=== PATIENT | female | born 1970 | race Caucasian/White ===

== ENCOUNTER 2020-10-10 14:49 | Inpatient (IN) ==
[2020-10-10 16:07] LABS: Basophils % 0.1 % (0.0-0.8); Hemoglobin 13.9 GM/DL (12.0-16.0); Immature Granulocytes % 0.5 %; Immature Granulocytes Absolute 0.07 #; Lymphocytes # 1.3 10*3/uL (1.4-4.0); Lymphocytes % 9.3 % (21.3-54.2); Mean Corpuscular HGB Conc 33.1 GM/DL (32-36); Mean Corpuscular Volume 91.3 FL (87-102); Mean Platelet Volume 9.8 FL (9.6-12.0); Monocytes % 3.3 % (1.7-12.7); Neutrophils % 86.8 % (38.7-73.9); Platelet Count 273 T/CUMM (130-400); Red Cell Distribution Width 13.2 % (9.3-17.3); White Blood Count 13.7 T/CUMM (4-12)
[2020-10-10 16:32] LABS: Albumin 3.3 G/DL (3.4-5.0); Bilirubin,Total 0.6 MG/DL (0.2-1.0); Calcium 8.6 MG/DL (8.5-10.1); Osmolality,Calculated 278.5 MOS/KG (273-304); Potassium 3.2 MMOL/L (3.5-5.1); Total Protein 7.7 G/DL (5.0-7.5)
[2020-10-10] MEDS ORDERED: HYDROmorphone 2 MG/1 ML VIAL IV STA (17:22)
[2020-10-10 17:46] LABS: Bilirubin,Urine Negative (Negative); Blood, Urine Moderate mg/dL (Negative); Glucose,Urine (UA) Negative (Negative); Ketones,Urine 5 mg/dL (Negative); Mucus,Urine Many /LPF (Occasional); Nitrite,Urine Negative (Negative); Protein,Urine 30 MG/DL; Squamous Epithelial Cell,Urine Occasional /HPF (0-10); Urine Appearance CLOUDY (Clear); Urine Color Yellow (Yellow); Urine Specific Gravity 1.031 (1.001-1.035); Urine Urobilinogen < 2.0 EU/DL (0.2-1.0); WBC,Urine 120 /HPF (0-6)
[2020-10-10] MEDS ORDERED: ONDANSETRON 4 MG/2 ML VIAL IV PRN (17:57)
[2020-10-10] MEDS ORDERED: DOCUSATE SODIUM 100 MG CAPSULE PO PRN (17:57)
[2020-10-10] MEDS ORDERED: GLUCAGON 1 MG VIAL IM PRN (17:57)
[2020-10-10] MEDS ORDERED: ACETAMINOPHEN 325 MG TABLET PO PRN (17:57)
[2020-10-10] MEDS ORDERED: hydrALAZINE 20 MG/1 ML VIAL IV PRN (17:57)
[2020-10-10] MEDS ORDERED: DEXTROSE 50% 25 GM/50 ML VIAL IV PRN (17:57)
[2020-10-10] MEDS ORDERED: MAGNESIUM SULF RIDER 2 GM in PREMIX 1 EACH IV PRN (18:05)
[2020-10-10] MEDS ORDERED: MAGNESIUM SULF RIDER 4 GM in PREMIX 1 EACH IV PRN (18:05)
[2020-10-10] MEDS: SODIUM CHLOR 0.9% KCL 40 MEQ 40 MEQ/1,000 ML BAG IV SCH (19:04)
[2020-10-10] MEDS: cefTRIAXone 1,000 MG in SYRINGE 1 EACH IV SCH (19:18)
[2020-10-10] MEDS ORDERED: MORPHINE 4 MG/1 ML VIAL IV PRN (19:43)
[2020-10-10] MEDS: POTASSIUM CHLORIDE INJ 30 MEQ in SODIUM CHLORIDE 0.9% 1,000 ML IV SCH (21:46)
[2020-10-10] MEDS: HYDROmorphone 2 MG/1 ML VIAL IV PRN (23:28)
[2020-10-11] MEDS: POTASSIUM CHLORIDE INJ 30 MEQ in SODIUM CHLORIDE 0.9% 1,000 ML IV SCH ×2 (04:13→18:18)
[2020-10-11] MEDS: HYDROmorphone 2 MG/1 ML VIAL IV PRN ×2 (04:18→10:51)
[2020-10-11 04:58] LABS: Basophils % 0.1 % (0.0-0.8); Hemoglobin 13.2 GM/DL (12.0-16.0); Immature Granulocytes % 0.4 %; Immature Granulocytes Absolute 0.05 #; Lymphocytes # 2.3 10*3/uL (1.4-4.0); Lymphocytes % 16.8 % (21.3-54.2); Mean Corpuscular HGB Conc 31.4 GM/DL (32-36); Mean Corpuscular Volume 94.4 FL (87-102); Mean Platelet Volume 10.2 FL (9.6-12.0); Neutrophils % 75.7 % (38.7-73.9); Platelet Count 253 T/CUMM (130-400); Red Blood Count 4.45 MC/CUMM (3.8-5.5); Red Cell Distribution Width 13.4 % (9.3-17.3); White Blood Count 13.9 T/CUMM (4-12)
[2020-10-11 05:27] LABS: Calcium 8.4 MG/DL (8.5-10.1); Osmolality,Calculated 282.1 MOS/KG (273-304); Potassium 3.8 MMOL/L (3.5-5.1); Risk Ratio 2.31; Thyroid Stimulating Hormone 1.58 uIU/ml (0.358-3.74); VLDL CHOLESTEROL 13.6 MG/DL
[2020-10-11] MEDS: PANTOPRAZOLE 40 MG TABLET PO SCH (08:55)
[2020-10-11] MEDS ORDERED: cefTRIAXone 1,000 MG in SYRINGE 1 EACH IV ONE (09:00)
[2020-10-11] MEDS: SODIUM CHLOR 0.9% KCL 40 MEQ 40 MEQ/1,000 ML BAG IV SCH (10:18)
[2020-10-11] MEDS ORDERED: SEVOFLURANE 1 UNIT/15 MINUTE INH ONE (12:31)
[2020-10-11] MEDS ORDERED: LIDOCAINE 2% 5 ML VIAL ONE (12:31)
[2020-10-11] MEDS ORDERED: MIDAZOLAM 2 MG/2 ML VIAL ONE (12:32)
[2020-10-11] MEDS ORDERED: propofoL 200 MG/20 ML VIAL IV ONE (12:32)
[2020-10-11] MEDS ORDERED: fentaNYL 100 MCG/2 ML VIAL ONE (12:47)
[2020-10-11] MEDS ORDERED: LACTATED RINGERS 1,000 ML IV SCH (13:00)
[2020-10-11] MEDS ORDERED: HYDROmorphone 2 MG/1 ML VIAL IV PRN ×2 (13:36→13:42)
[2020-10-11] MEDS ORDERED: ONDANSETRON 4 MG/2 ML VIAL IV PRN (13:42)
[2020-10-11] MEDS ORDERED: MEPERIDINE 25 MG/1 ML VIAL IV PRN (13:42)
[2020-10-11] MEDS ORDERED: PROMETHAZINE INJ 25 MG in SODIUM CHLORIDE 0.9% 50 ML IV PRN (13:42)
[2020-10-11] MEDS ORDERED: diphenhydrAMINE 50 MG/1 ML VIAL IV PRN (13:42)
[2020-10-11] MEDS: oxyCODONE/ACETAMINOPHEN 5-325 MG TABLET PO PRN (18:21)
[2020-10-12] MEDS: POTASSIUM CHLORIDE INJ 30 MEQ in SODIUM CHLORIDE 0.9% 1,000 ML IV SCH ×2 (05:19→08:19)
[2020-10-12 05:54] LABS: Basophils % 0.2 % (0.0-0.8); Immature Granulocytes % 0.3 %; Immature Granulocytes Absolute 0.03 #; Red Cell Distribution Width 13.5 % (9.3-17.3)
[2020-10-12 06:05] LABS: Hematocrit 34.6 VOL% (35.7-47.0); Lymphocytes # 2.2 10*3/uL (1.4-4.0); Lymphocytes % 24.1 % (21.3-54.2); Mean Corpuscular HGB Conc 32.1 GM/DL (32-36); Mean Corpuscular Volume 94.3 FL (87-102); Mean Platelet Volume 10.3 FL (9.6-12.0); Monocytes % 8.3 % (1.7-12.7); Neutrophils % 67.1 % (38.7-73.9); Red Blood Count 3.67 MC/CUMM (3.8-5.5)
[2020-10-12 06:06] LABS: Hemoglobin 11.1 GM/DL (12.0-16.0)
[2020-10-12 06:07] LABS: Platelet Count 192 T/CUMM (130-400)
[2020-10-12 06:26] LABS: Calcium 7.8 MG/DL (8.5-10.1); Osmolality,Calculated 280.1 MOS/KG (273-304); Potassium 3.4 MMOL/L (3.5-5.1)
[2020-10-12] MEDS ORDERED: POTASSIUM CHLORIDE 20 MEQ TABLET PO ONE (07:01)
[2020-10-12] MEDS: PANTOPRAZOLE 40 MG TABLET PO SCH (08:17)
[2020-10-12] MEDS: oxyCODONE/ACETAMINOPHEN 5-325 MG TABLET PO PRN (08:19)
[2020-10-12] MEDS: cefTRIAXone 1,000 MG in SYRINGE 1 EACH IV SCH (08:20)
[2020-10-12] MEDS ORDERED: LOSARTAN 25 MG TABLET PO SCH (09:00)
[2020-10-12] MEDS ORDERED: ESTRADIOL 1 MG TABLET PO SCH (09:00)
[2020-10-12] MEDS ORDERED: SERTRALINE 25 MG TABLET PO SCH (09:00)
[2020-10-12 11:55] VITALS: BP 90/46
[2020-10-13] MEDS ORDERED: AMOXICILLIN/CLAV 875 MG TABLET PO SCH (09:00)
== END 2020-10-12 13:05 | disposition home or self-care (01) | DRG 660 ==
LOC: N.ED 14:49 → N.5E 14:49
PROVIDERS: ADMIT Internal Medicine; ATTEND Internal Medicine